=== PATIENT | female | born 1990 | race Caucasian/White ===

== ENCOUNTER 2018-09-04 08:33 | Emergency (ER) | payer BC ==
[2018-09-04 08:38] VITALS: BP 122/77; PULSE 61; RESP 20; TEMP 98.7
[2018-09-04] MEDS ORDERED: methylPREDNISolone SOD SUCCI 125 MG/2 ML VIAL IM ONE (08:47)
--- NOTE | 2018-09-04 08:52 | ED ---
Upper Extremity HPI - General Chief Complaint: Extremity Injury, Upper Stated Complaint: left hand numbness/1 wk Time Seen by Provider: 09/04/18 08:40 Source: patient, RN notes reviewed Mode of arrival: ambulatory Limitations: no limitations - History of Present Illness Initial Comments: 28-year-old female presents emergency department tingling of left wrist pain. Patient states has been worse over the last 1 week. Patient states she has pain and numbness in the first 2 digits. Patient is she wakes up in [place] night and states that her hands are asleep. 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 Patient is right-hand dominant. Patient states that she has not been taking it for symptoms at this time. - Related Data Previous Rx's Medication Instructions Recorded Ibuprofen [Motrin] 600 mg PO Q8HR PRN #30 tab 09/04/18 predniSONE 50 mg PO DAILY #5 tab 09/04/18 Allergies Allergy/AdvReac Type Severity Reaction Status Date / Time pet dander Allergy Cough Uncoded 09/04/18 08:38 Review of Systems ROS Statement: Those systems with pertinent positive or pertinent negative responses have been documented in the HPI. ROS Other: All systems not noted in ROS Statement are negative. Past Medical History Past Medical History: Asthma History of Any Multi-Drug Resistant Organisms: None Reported Past Surgical History: Tonsillectomy Past Psychological History: Anxiety Smoking Status: Current every day smoker Past Alcohol Use History: Rare Past Drug Use History: Prescription Drug Abuse General Exam Limitations: no limitations General appearance: alert, in no apparent distress Head exam: Present: atraumatic, normocephalic, normal inspection Respiratory exam: Present: normal lung sounds bilaterally. Absent: respiratory distress, wheezes, rales, rhonchi, stridor Cardiovascular Exam: Present: regular rate, normal rhythm, normal heart sounds. Absent: systolic murmur, diastolic murmur, rubs, gallop, clicks Extremities exam: Present: other (Left wrist positive Tinel's and Phalen's,, full range of motion neurovascular intact full strength, cap refill less than 2 seconds, no discoloration no swelling no ecchymosis) Course Vital Signs 09/04/18 08:35 Temperature 98.7 F Pulse Rate 61 Respiratory 20 Rate Blood Pressure 122/77 O2 Sat by Pulse 100 Oximetry Medical Decision Making - Medical Decision Making 28-year-old female sent for left wrist and hand pain and numbness. Patient has carpal tunnel. Patient will be given cock-up splint, ibuprofen steroids. Patient will follow-up with orthopedics if no improvement. Disposition Clinical Impression: Carpal tunnel syndrome of left wrist Disposition: HOME SELF-CARE Condition: Stable Instructions (If sedation given, give patient instructions): Cubital Tunnel Syndrome (ED) Additional Instructions: Please return to the Emergency Department if symptoms worsen or any other concerns. Prescriptions: Ibuprofen [Motrin] 600 mg PO Q8HR PRN #30 tab PRN Reason: Pain predniSONE 50 mg PO DAILY #5 tab Is patient prescribed a controlled substance at d/c from ED?: No Referrals: None,Stated [Primary Care Provider] - 1-2 days Regis Concepcion DO [Medical Doctor] - 1-2 days Time of Disposition: 08:52
== END 2018-09-04 09:20 | disposition home or self-care (01) ==
LOC: EC 08:33
DX: G56.02 Carpal tunnel syndrome, left upper limb (principal); F17.200 Nicotine dependence, unspecified, uncomplicated; Z91.048 Other nonmedicinal substance allergy status
CPT/HCPCS: 99283; 96372; J2930

== ENCOUNTER 2019-01-16 00:10 | Emergency (ER) | payer BC ==
[2019-01-16] MEDS ORDERED: DEXAMETHASONE SOD PHOSPHATE 10 MG/ML 1 ML VIAL IM STA (01:28)
--- NOTE | 2019-01-16 01:30 | ED ---
ENT HPI - General Chief complaint: ENT Stated complaint: Weakness Time Seen by Provider: 01/16/19 00:18 Source: patient Mode of arrival: ambulatory Limitations: no limitations - History of Present Illness Initial comments: Patient is a 28-year-old female presenting to the emergency department with a chief complaint of generalized bodyaches, sore throat, nasal congestion and chills. Patient reports the symptoms began yesterday with a sudden onset of the symptoms. Patient also does report ear fullness but does not have any otalgia. Patient denies a cough or shortness of breath. Patient denies any headaches or fever Patient reports taking DayQuil with somewhat of an improvement. Patient denies any nausea or vomiting or diarrhea. - Related Data Previous Rx's Medication Instructions Recorded Ibuprofen [Motrin] 600 mg PO Q8HR PRN #30 tab 09/04/18 predniSONE 50 mg PO DAILY #5 tab 09/04/18 methylPREDNISolone [Medrol Dose 4 mg PO DIRECTED #1 pack 01/16/19 Pack] Allergies Allergy/AdvReac Type Severity Reaction Status Date / Time pet dander AdvReac Cough Uncoded 01/16/19 00:15 Review of Systems ROS Statement: Those systems with pertinent positive or pertinent negative responses have been documented in the HPI. ROS Other: All systems not noted in ROS Statement are negative. Past Medical History Past Medical History: Asthma History of Any Multi-Drug Resistant Organisms: None Reported Past Surgical History: Tonsillectomy Past Psychological History: Anxiety Smoking Status: Current every day smoker Past Alcohol Use History: Rare Past Drug Use History: Prescription Drug Abuse General Exam Limitations: no limitations General appearance: alert, in no apparent distress Head exam: Present: atraumatic, normocephalic, normal inspection Eye exam: Present: normal appearance, PERRL, EOMI. Absent: conjunctival injection Pupils: Present: normal accommodation ENT exam: Present: normal exam, normal oropharynx (No tonsils), mucous membranes moist, TM's normal bilaterally, normal external ear exam Neck exam: Present: normal inspection, full ROM. Absent: tenderness, lymphadenopathy Respiratory exam: Present: normal lung sounds bilaterally Cardiovascular Exam: Present: regular rate, normal rhythm, normal heart sounds Extremities exam: Present: normal inspection, full ROM Back exam: Present: normal inspection, full ROM Neurological exam: Present: alert, oriented X3 Psychiatric exam: Present: normal affect, normal mood Skin exam: Present: warm, intact, normal color Course Vital Signs 01/16/19 00:12 Temperature 98.8 F Pulse Rate 98 Respiratory 20 Rate Blood Pressure 132/77 O2 Sat by Pulse 100 Oximetry Medical Decision Making - Medical Decision Making Patient is a 28-year-old female presenting to the emergency department with a chief complaint of generalized body aches, sore throat and nasal congestion. Patient reports the symptoms have been going on for about a day. Patient had no previous fevers. Patient does not have a fever in the ED. Patient does have chills and night sweats. Patient did not have flu shot. Patient given Decadron and discharged with a Medrol Dosepak. Patient denies shortness of breath or cough. I suspect the patient has the flu. Patient is a smoker. Patient advised to drink a lot of fluids.I counseled the patient for smoking cessation for greater than 3 minutes. Strict return parameters were thoroughly discussed with patient was understanding and agreeable. Case discussed physician. - Lab Data Lab Results 01/16/19 Range/Units 00:45 Influenza Type A RNA Not Detected (Not Detectd) Influenza Type B (PCR) Not Detected (Not Detectd) Disposition Clinical Impression: Upper respiratory infection, viral Disposition: HOME SELF-CARE Condition: Stable Instructions (If sedation given, give patient instructions): Influenza Virus Vaccine (By injection) Prescriptions: methylPREDNISolone [Medrol Dose Pack] 4 mg PO DIRECTED #1 pack Is patient prescribed a controlled substance at d/c from ED?: No Referrals: None,Stated [Primary Care Provider] - 1-2 days Time of Disposition: 01:29
[2019-01-16 01:54] VITALS: BP 132/94; PULSE 94; RESP 18; TEMP 98.2
== END 2019-01-16 01:50 | disposition home or self-care (01) ==
LOC: EC 00:10
DX: J06.9 Acute upper respiratory infection, unspecified (principal); Z71.6 Tobacco abuse counseling; F17.200 Nicotine dependence, unspecified, uncomplicated; Z90.89 Acquired absence of other organs; Z91.048 Other nonmedicinal substance allergy status
CPT/HCPCS: 87502; 99284; 96372; 99406; J1100